=== PATIENT | female | born 1975 | race Caucasian/White ===

== ENCOUNTER 2016-07-17 16:30 | Outpatient (RCR) | payer BC ==
[~2016-07-17 16:30] MED LIST: CARDI-OMEGA1000 MG PO; ELITE MAGNESIUM1 TAB PO; FOLATE; MULTI VITAMINS1 TAB PO; PRENATAL1 TA1 PO; VIT B3
== END 2016-08-08 12:39 | disposition still patient (30) ==
LOC: WSPT 16:30
DX: Z47.89 Encounter for other orthopedic aftercare (principal); M23.8X1 Other internal derangements of right knee
CPT/HCPCS: G0283-GP

== ENCOUNTER → 2017-04-04 | Outpatient (CLI) | payer BC | LOC: MC.RAD 13:00 | DX: N63 Unspecified lump in breast (principal) ==

== ENCOUNTER 2019-10-10 05:22 | Inpatient (IN) | payer SELFPAY ==
[~2019-10-10] VITALS: Ht 177.8 cm; Wt 99.1 kg
[2019-10-10] VITALS (31 sets, daily range): BP systolic 103–143; BP diastolic 54–85; PULSE 71–114; TEMP 97.6–98.6
--- NOTE | 2019-10-10 05:25 | NUR ---
G6L4 at 39 weeks and 5 days arrives to unit ambulatory with complaint of contractions every 5 minutes since 2229. Pt was attempting a home delivery with a rug touch up painter but has decided she would like an epidural. Pt reports good movement, denies LOF, or vaginal bleeding. Chef Under and spouse at bedside with patient, rug touch up painter states patient has not had cervical exam. Pt oriented to room, call light within in reach, bed in low and locked position. US and toco explained and applied. Admission assessment started. Vital signs obtained. SVE 3/90/-3, membranes intact.
[2019-10-10] MEDS ORDERED: COLACE 100100 MG/CAP PO (06:11)
[2019-10-10] MEDS ORDERED: NATURAL VITAM1000 MG PO (06:12)
--- NOTE | 2019-10-10 06:30 | NUR ---
Assumed care of patient. Sits up in bed, alert, States having some contractions. Spouse and general merchandise salesperson at bedside. Denies any pain at this time. 0650 Ambulates to the bathroom and back. Vag exam done, dilated 3+ 90%, minus2-3. Let patient know that she could go home and labor or stay another hour and see what happens. Patient states would like to stay and walk around. Off monitor at this time.
--- NOTE | 2019-10-10 07:00 | NUR ---
Request to ambulate in the halls. Monitors off, ambulates with spouse.
--- NOTE | 2019-10-10 09:00 | NUR ---
0915 Anesthesia called about request for epidural. Iv placed to right forearm.
--- NOTE | 2019-10-10 09:30 | NUR ---
0950 Anesthesia here, visits with patient. Sits up for epidural. 1001 Local given by anesthesia Kita Anaya c.r.n.a. 1006 Test dose given by anesthesia.
[2019-10-10 09:32] LABS: BASO % 0.4 % (0.0-2.0); EOS % 0.4 % (0-4.0); GRAN # 9.2 (1.4-6.5); HEMATOCRIT 37.8 % (37.0-47.0); HEMOGLOBIN 12.1 g/dl (12.5-16.0); LYMPH # 1.4 (1.2-3.4); LYMPH % 12.5 % (20.0-51.0); MEAN CELL VOLUME 80 fl (80.0-100.0); MEAN CORPUSCULAR HEMOGLOBIN 26 pg (27.0-31.0); MEAN CORPUSCULAR HGB CONC 32 g/dl (33.0-37.0); MEAN PLATELET VOLUME 10.4 fl (7.4-10.4); MONO # 0.6 (0.1-0.6); MONO % 5.2 % (1.7-9.3); PLATELET COUNT 240 K/mm3 (130-400); RED BLOOD COUNT 4.75 M/mm3 (4.10-5.30); REDCELL DISTRIBUTION WIDTH-CV 14.2 % (11.5-14.5)
--- NOTE | 2019-10-10 10:00 | NUR ---
Continues to sit up for epidural. 1010 Lies down after epidural. Spouse helped to chair because of feeling nausea and pale color. Juice and peanut butter given.
--- NOTE | 2019-10-10 10:45 | NUR ---
Rests in bed, alert. States feeling good. Denies any pain.
--- NOTE | 2019-10-10 11:00 | NUR ---
1112 Parra catheter placed per sterile technique.
--- NOTE | 2019-10-10 13:00 | NUR ---
1300 Dr. Forbes here, visits with family. Patient declines rupture of membranes at this time.1308 heart tones down in the nintys for 90 seconds. Repositioned to left side then to right side. 028L on. Strip shown to Dr. Forbes. Fluid bolus given. heart tones 150 with minimal variability.
--- NOTE | 2019-10-10 14:45 | NUR ---
Rests in bed, alert. 1455 Request pain medication. Anesthesia notified. 1459 Vag exam done, dilated to nine. 1504 Anesthesia here, medication given.
--- NOTE | 2019-10-10 15:00 | NUR ---
Rests in bed, alert. 1505 Anesthesia here, gives medication.
--- NOTE | 2019-10-10 15:30 | NUR ---
heart tones down in the seventys for 90 seconds, 028l on. Dr. Forbes here. Repositioned to both sides with help of [place]. Pushes with contractions. 1534 Spontaneous delivery of baby girl by Dr. Forbes. 1544 Spontaneus delivery of placenta by Dr. Forbes. Patient refuses pitocin after delivery. Repair work done by Dr. Forbes. Fundal pressure done.
--- NOTE | 2019-10-10 16:00 | NUR ---
Rests in bed, alert. Holds baby, breastfeeds. Denies any needs at this time.
[2019-10-10] MEDS ORDERED: IBU600 MG PO (16:11)
--- NOTE | 2019-10-10 16:30 | NUR ---
Rests in bed, alert. Continues to breast feed.
--- NOTE | 2019-10-10 18:20 | NUR ---
Ambulates to the bathroom. States unable to pee at this time. Diana-care done by patient. Ice pack, tucks pads on. To room 216 via wheel chair. Oriented to room by nurse Prabhakar. To bed, baby to patient by nurse Prabhakar.
[2019-10-11] VITALS: BP 117/72; PULSE 86; TEMP 98.4
[2019-10-11 08:05] VITALS: BP 109/57; PULSE 78; TEMP 98.1
[2019-10-11 12:20] VITALS: BP 109/2; BP 109/72; PULSE 79; TEMP 98.2
== END 2019-10-11 17:15 | disposition home or self-care (01) | DRG 807 ==
LOC: LDRO 05:22 → LDR 08:23 → OB 18:55
PROVIDERS: Obstetrics & Gynecology; ADMIT Obstetrics & Gynecology
PROC: 10E0XZZ Delivery of Products of Conception, External Approach (ICD-10-PCS; principal; 2019-10-10)
PROC: 0HQ9XZZ Repair Perineum Skin, External Approach (ICD-10-PCS; 2019-10-10)
DX: O70.0 First degree perineal laceration during delivery (principal); Z37.0 Single live birth; Z3A.39 39 weeks gestation of pregnancy; O77.0 Labor and delivery complicated by meconium in amniotic fluid
CPT/HCPCS: J7120

== ENCOUNTER → 2020-05-24 | Outpatient (CLI) | payer SELFPAY ==
[~2020-05-24] MED LIST changes: +COLACE 100100 MG/CAP PO; +IBU600 MG PO; +NATURAL VITAM1000 MG PO
== END ==
LOC: MC.RAD 07:30
DX: N64.4 Mastodynia (principal)

== ENCOUNTER → 2022-09-07 | Outpatient (CLI) | payer SELFPAY | LOC: MC.RAD 11:00 | DX: Z39.1 Encounter for care and examination of lactating mother (principal); N63.24 Unspecified lump in the left breast, lower inner quadrant; Z80.3 Family history of malignant neoplasm of breast ==

== ENCOUNTER → 2023-09-26 | Outpatient (CLI) | payer SELFPAY ==
[~2023-09-26] MED LIST changes: +ASPIRIN E.C. 8181 MG PO; +PLAVIX 75MG TAB75 MG PO
== END ==
LOC: MC.RAD 10:00
DX: Z12.31 Encounter for screening mammogram for malignant neoplasm of breast (principal)